=== PATIENT | female | born 2000 | race Caucasian/White ===

== ENCOUNTER 2019-07-07 12:58 | Day surgery (SDC) | payer OTHER ==
[~2019-07-07] VITALS: Ht 162.6 cm; Wt 68.4 kg
[2019-07-07 13:27] VITALS: BP 119/82; PULSE 80; TEMP 98.3
[2019-07-07] MEDS ORDERED: FIBER0.52 GM PO (13:34)
[2019-07-07] MEDS ORDERED: BIRTH CONTROL PO (13:35)
[2019-07-07 14:30] VITALS: BP 118/81; PULSE 81; TEMP 98.4
--- NOTE | 2019-07-07 14:30 | NUR ---
Patient brought back to [facility] via cart. Alert and oriented, ambulated to chair without difficulty. Denies any pain or nausea. at bedside to translate. Hooked to monitors, vital signs stable. Requesting soda and crackers. Call nash within reach, will continue to monitor.
[2019-07-07] MEDS ORDERED: LINZESS290CAP (14:38)
[2019-07-07 14:45] VITALS: BP 111/74; PULSE 83
--- NOTE | 2019-07-07 14:45 | NUR ---
Patient tolerating food and drink without difficulty. Vital signs stable. Will continue to monitor.
[2019-07-07 15:00] VITALS: BP 106/60; PULSE 75
--- NOTE | 2019-07-07 15:00 | NUR ---
Patient states shes feeling ready to go home. Tolerating food and drink without difficulty. Discharge instructions reviewed with patient and , verbalized understanding. Paitent to get dressed at this time.
--- NOTE | 2019-07-07 15:20 | NUR ---
Patient brought down to lobby via wheel chair. To be driven home by .
[2019-07-07 16:01] VITALS: BP 87/47; PULSE 65
== END 2019-07-07 15:20 | disposition home or self-care (01) ==
LOC: SDCO 12:58
DX: K58.1 Irritable bowel syndrome with constipation (principal)
CPT/HCPCS: J2250; J3010; J7030